=== PATIENT | female | born 1965 | race Caucasian/White ===

== ENCOUNTER 2020-03-09 09:41 | Inpatient (IN) | payer BC, SELFPAY ==
[~2020-03-09] VITALS: Ht 152.4 cm; Wt 56.2 kg
[2020-03-09 13:00] LABS: BASOPHIL % 0.3 % (0-2); PLATELET COUNT 215 x10^3mcL (130-400); RED CELL DISTRIBUTION WIDTH 12.6 % (11.5-14.5)
[2020-03-09 13:13] LABS: CALCIUM 8.6 mg/dL (8.5-10.1); CHLORIDE SERUM 107 mmol/L (98-107); CREATININE SERUM 0.7 mg/dL (0.6-1.0); GFR1 > 60 mL/min; GLUCOSE SERUM 94 mg/dL (74-106); SODIUM SERUM 141 mmol/L (136-145)
[2020-03-09 13:23] LABS: T3 TOTAL 0.89 ng/mL
[2020-03-09 13:27] LABS: ALBUMIN 3.8 g/dL (3.4-5.0); ALKALINE PHOSPHATASE 57 U/L (46-116); ALT/SGPT 28 U/L (14-59); AST/SGOT 17 U/L (15-37); BILIRUBIN TOTAL 0.42 mg/dL (0.20-1.00); FREE T4 1.06 ng/dL (0.76-1.46); FREE THYROXINE INDEX 2.1 ug/dL (1.4-4.5); T4(THYROXINE) 5.9 ug/dL (4.7-13.3); TOTAL PROTEIN, SERUM 7.2 g/dL (6.4-8.2)
[2020-03-09] MEDS ORDERED: LIPITOR10 MG PO (16:28)
[2020-03-09 18:36] LABS: CHOLESTEROL/HDL RATIO 2.7; MAGNESIUM 2.2 mg/dL (1.8-2.4); PHOSPHOROUS 4.3 mg/dL (2.5-4.9)
[2020-03-09 23:17] VITALS: BP 124/64
[2020-03-09 23:23] VITALS: Ht 152.4 cm; Wt 56.2 kg
[2020-03-10 05:28] VITALS: BP 99/53
[2020-03-10 08:00] VITALS: BP 112/59
[2020-03-10 10:00] LABS: BASOPHIL % 0.6 % (0-2); PLATELET COUNT 223 x10^3mcL (130-400); RED CELL DISTRIBUTION WIDTH 12.6 % (11.5-14.5)
[2020-03-10 10:06] LABS: UA SPECIFIC GRAVITY 1.015 (1.005-1.035); microscopic required? YES; urine erythrocyte NEGATIVE (NEGATIVE)
[2020-03-10 10:11] LABS: ALBUMIN 3.9 g/dL (3.4-5.0); ALKALINE PHOSPHATASE 55 U/L (46-116); ALT/SGPT 28 U/L (14-59); AST/SGOT 19 U/L (15-37); CALCIUM 8.5 mg/dL (8.5-10.1); CARBON DIOXIDE 27.9 mmol/L (21-32); CHLORIDE SERUM 107 mmol/L (98-107); CREATININE SERUM 0.7 mg/dL (0.6-1.0); GFR1 > 60 mL/min; GLUCOSE SERUM 114 mg/dL (74-106); MAGNESIUM 1.9 mg/dL (1.8-2.4); PHOSPHOROUS 3.3 mg/dL (2.5-4.9); POTASSIUM SERUM 4.1 mmol/L (3.5-5.1); SODIUM SERUM 143 mmol/L (136-145); TOTAL PROTEIN, SERUM 7.5 g/dL (6.4-8.2)
[2020-03-10 10:41] LABS: AMPHETAMINE QUAL UR NONE DETECTED (See below)
[2020-03-10 11:39] VITALS: BP 143/86
[2020-03-10 15:46] VITALS: BP 111/67
[2020-03-10 20:21] VITALS: BP 97/61
[2020-03-11 05:33] VITALS: BP 108/64
[2020-03-11 07:49] VITALS: BP 108/61
[2020-03-11 08:00] LABS: BASOPHIL % 0.6 % (0-2); PLATELET COUNT 205 x10^3mcL (130-400); RED CELL DISTRIBUTION WIDTH 12.3 % (11.5-14.5)
[2020-03-11 08:13] LABS: CALCIUM 8.5 mg/dL (8.5-10.1); CARBON DIOXIDE 25.4 mmol/L (21-32); CHLORIDE SERUM 108 mmol/L (98-107); CREATININE SERUM 0.8 mg/dL (0.6-1.0); GFR1 > 60 mL/min; GLUCOSE SERUM 93 mg/dL (74-106); MAGNESIUM 1.9 mg/dL (1.8-2.4); PHOSPHOROUS 3.4 mg/dL (2.5-4.9); SODIUM SERUM 143 mmol/L (136-145)
[2020-03-11 11:42] VITALS: BP 121/74
[2020-03-11 15:55] VITALS: BP 111/75
[2020-03-11 20:44] VITALS: BP 120/70
[2020-03-12 06:10] VITALS: BP 114/74
[2020-03-12 07:17] LABS: BASOPHIL % 0.6 % (0-2); PLATELET COUNT 208 x10^3mcL (130-400); RED CELL DISTRIBUTION WIDTH 12.7 % (11.5-14.5)
[2020-03-12 08:13] LABS: CALCIUM 9.1 mg/dL (8.5-10.1); CARBON DIOXIDE 24.9 mmol/L (21-32); CHLORIDE SERUM 107 mmol/L (98-107); CREATININE SERUM 0.6 mg/dL (0.6-1.0); GFR1 > 60 mL/min; GLUCOSE SERUM 87 mg/dL (74-106); POTASSIUM SERUM 3.8 mmol/L (3.5-5.1); SODIUM SERUM 144 mmol/L (136-145)
[2020-03-12 08:30] VITALS: BP 101/64
[2020-03-12] MEDS ORDERED: LIPI10 PO (12:23)
[2020-03-12] MEDS ORDERED: MECLIZINE HCL12.5 MG PO (12:24)
[2020-03-12 12:40] VITALS: BP 109/72
[2020-03-12 12:52] VITALS: BP 101/64
== END 2020-03-12 13:30 | disposition home or self-care (01) | DRG 74 ==
LOC: ED 09:41 → DU 16:14
PROVIDERS: Emergency Medicine; ADMIT Family Medicine; ATTEND Family Medicine
DX: G90.8 Other disorders of autonomic nervous system (principal); I24.8 Other forms of acute ischemic heart disease; E78.5 Hyperlipidemia, unspecified; Z20.828 Contact with and (suspected) exposure to other viral communicable diseases; E78.00 Pure hypercholesterolemia, unspecified; Z79.899 Other long term (current) drug therapy
CPT/HCPCS: 83880; 84439; G0378; J7030; U0003-CS